=== PATIENT | female | born 1955 | race Caucasian/White ===

== ENCOUNTER 2019-04-13 10:30 | Day surgery (SDC) | payer BC ==
[2019-04-13] MEDS ORDERED: PROPOFOL 60 ML (13:53)
[2019-04-13] MEDS ORDERED: LIDOCAINE 2% (SDV) 5 ML INJ (13:53)
== END 2019-04-13 16:01 | disposition home or self-care (01) ==
LOC: GIL 10:30
DX: Z12.11 Encounter for screening for malignant neoplasm of colon (principal); K57.30 Diverticulosis of large intestine without perforation or abscess without bleeding; D12.5 Benign neoplasm of sigmoid colon; D12.2 Benign neoplasm of ascending colon; D12.3 Benign neoplasm of transverse colon; D12.8 Benign neoplasm of rectum; E11.9 Type 2 diabetes mellitus without complications; I10 Essential (primary) hypertension; E78.5 Hyperlipidemia, unspecified
CPT/HCPCS: 45380; 82962; 88305